=== PATIENT | male | born 1935 | race Caucasian/White ===

== ENCOUNTER 2016-12-26 12:34 | Outpatient (CLI) | payer MEDICARE, BC ==
[2016-12-26 13:07] LABS: BASOPHILS % (AUTO) 0.7 %; EOSINOPHILS # (AUTO) 0.3 10^3/uL (0.0-0.7); EOSINOPHILS % (AUTO) 3.9 %; HCT - HEMATOCRIT 41.6 % (42.0-52.0); HGB - HEMOGLOBIN 13.7 g/dL (14.0-18.0); LYMPHOCYTES # (AUTO) 1.9 10^3/uL (1.5-3.5); LYMPHOCYTES % (AUTO) 25.8 %; MEAN CORPUSCULAR HEMOGLOBIN 28.5 pg (27.0-31.0); MEAN CORPUSCULAR HGB CONC 32.8 g/dL (32.0-36.0); MEAN PLATELET VOLUME 8.3 fL (7.4-11.4); MONOCYTES # (AUTO) 0.7 10^3/uL (0.0-1.0); MONOCYTES % (AUTO) 9.2 %; NEUTROPHILS # (AUTO) 4.4 10^3/uL (1.5-6.6); NEUTROPHILS % (AUTO) 60.4 %; RED BLOOD COUNT 4.79 10^6/uL (4.70-6.10); RED CELL DISTRIBUTION WIDTH 13.1 % (12.0-15.0); UNCORRECTED WHITE BLOOD COUNT 7.3 x10^3/uL; WHITE BLOOD COUNT 7.3 x10^3/uL (4.8-10.8)
[2016-12-26 13:20] LABS: ALBUMIN/GLOBULIN RATIO 1.2 (1.0-2.2); BILIRUBIN,TOTAL 0.6 mg/dL (0.2-1.0); CALCIUM 9.5 mg/dL (8.5-10.3); CREATININE 0.9 mg/dL (0.6-1.2); POTASSIUM 4.4 mmol/L (3.5-5.0); TOTAL PROTEIN 7.1 g/dL (6.7-8.2)
--- NOTE | 2016-12-26 20:20 | XRAY Report ---
EXAM: CHEST RADIOGRAPHY EXAM DATE: 12/26/2016 01:50 PM. CLINICAL HISTORY: PLEURITIC CHEST PX/CAD/ARM PX LEFT. COMPARISON: 05/26/2013. TECHNIQUE: 2 views. FINDINGS: Lungs/Pleura: No focal opacities evident. No pleural effusion. No pneumothorax. Normal volumes. Mediastinum: Heart and mediastinal contours are unremarkable. Postsurgical changes typical of CABG. Other: Degenerative changes in the spine. IMPRESSION: No active disease seen in the chest. [facility] Referring Provider Line: [phone] SITE ID: [id number]
--- NOTE | 2016-12-27 08:43 | XRAY Report ---
EXAM: LEFT SHOULDER RADIOGRAPHY EXAM DATE: 12/26/2016 01:50 PM. CLINICAL HISTORY: ARM PX LEFT. COMPARISON: None. TECHNIQUE: 3 views. FINDINGS: Bones: No acute fracture or focus of destruction. Joints: Degenerative changes at the glenohumeral and acromioclavicular joints (mild). Soft tissues: The visualized hemithorax is unremarkable. No soft tissue swelling. IMPRESSION: Mild degenerative changes. No acute process. [facility] Referring Provider Line: [phone] SITE ID: [id number]
== END 2016-12-26 12:35 | disposition home or self-care (01) ==
LOC: DI 12:34
PROVIDERS: ATTEND Internal Medicine
DX: M19.012 Primary osteoarthritis, left shoulder (principal); R07.81 Pleurodynia; M79.602 Pain in left arm; I25.10 Atherosclerotic heart disease of native coronary artery without angina pectoris
CPT/HCPCS: 36415; 71020; 80053; 85025

== ENCOUNTER 2017-01-01 19:38 | Outpatient (CLI) | payer MEDICARE, BC ==
--- NOTE | 2017-01-04 08:30 | Ultrasound Report ---
EXAM: LEFT UPPER EXTREMITY ULTRASOUND - LIMITED EXAM DATE: 01/01/2017 08:59 PM. CLINICAL HISTORY: SOFT TISSUE MASS. COMPARISON: None. TECHNIQUE: Real-time scanning was performed with static images obtained. FINDINGS: Sonographic evaluation over the area of concern near the left scapula shows the presence of an intramuscular echogenic lesion measuring approximately 0.5 x 0.5 x 1.8 cm. No obvious internal va scularity. IMPRESSION: Small intramuscular echogenic structure in the area of palpable concern. Nonspecific sono graphic appearance. Considerations might include hematoma or intramuscular lipoma. If further imaging characterization is desired, consider CT or MRI. [facility] Referring Provider Line: [phone] SITE ID: [id number]
== END 2017-01-01 19:39 | disposition home or self-care (01) ==
LOC: DI 19:38
PROVIDERS: ATTEND Physician Assistant Medical
DX: M62.89 Other specified disorders of muscle (principal)
CPT/HCPCS: 76882

== ENCOUNTER 2017-01-12 08:37 | Outpatient (CLI) | payer MEDICARE, BC ==
[2017-01-12] MEDS ORDERED: GADOBUTROL 10 MMOL/10 ML VIAL ONE (09:23)
[2017-01-12] MEDS ORDERED: GADOBUTROL 10 MMOL/10 ML VIAL IVP ONE (10:00)
--- NOTE | 2017-01-12 14:28 | MRI Report ---
EXAM: MR CHEST WITHOUT AND WITH CONTRAST EXAM DATE: 01/12/2017 10:11 AM CLINICAL HISTORY: Left arm and chest pain with soft tissue mass. COMPARISON: Ultrasound 01/02/2016. TECHNIQUE: Multiplanar T1 and STIR sequences obtained to the chest and chest wall on an MR scanner. I maging obtained before and after administration of 10 cc intravenous gadavist gadolinium contrast. FINDINGS: There are a few normal fatty replaced bilateral axillary lymph nodes. No MR evidence of soft tissue m ass or abnormal enhancement. The small probable lipoma on ultrasound may be difficult to distinguish from adjacent subcutaneous fat by MRI. Bony structures of the chest demonstrate normal morphology and signal. No fracture, marrow edema or s uspicious bony lesion. Previous median sternotomy. Lungs well expanded and clear within limits of MRI. Heart size normal. Visualized upper abdominal org ans unremarkable. IMPRESSION: 1. No MR evidence of mass in the left axilla. May be difficult to distinguish subcutaneous fat from s mall lipoma. 2. No evidence of mass, lymphadenopathy or inflammatory process in the chest or upper abdomen. [facility] Referring Provider Line: [phone] SITE ID: [id number]
== END 2017-01-12 08:38 | disposition home or self-care (01) ==
LOC: DI 08:37
PROVIDERS: ATTEND Family Medicine
DX: M79.9 Soft tissue disorder, unspecified (principal)
CPT/HCPCS: 71552; A9585

== ENCOUNTER 2017-07-21 08:43 | Outpatient (CLI) | payer MEDICARE, BC ==
[2017-07-21] MEDS ORDERED: BARIUM SULFATE 176 GM BOTTLE PO ONE (09:45)
[2017-07-21] MEDS ORDERED: BARIUM SULFATE 135 ML BOTTLE PO ONE (09:45)
--- NOTE | 2017-07-21 10:19 | XRAY Report ---
ESOPHAGRAM: 07/21/2017 HISTORY: Heartburn, regurgitation. FINDINGS: The patient was given thin and thick barium to swallow by mouth as well as a barium tablet. There is no evidence of aspiration or penetration. Minor presbyesophagus is present with lack of secondary stripping waves. Occasional tertiary contraction is present. There is no evidence of stricture and a 13 mm barium tablet passes easily into the stomach. There is free reflux to the level of the clavicles with lack of clearing. No hiatal hernia is seen. Incidental note made of prior CABG. Fluoroscopy time: 4 minutes 16 seconds Number of images: 34 IMPRESSION: LARGE AMOUNT OF ESOPHAGEAL REFLUX TO THE LEVEL OF THE CLAVICLES WITH ABSENT CLEARING. NO HIATAL HERNIA OR ASPIRATION. NO STRICTURE SEEN. TD: 07/21/2017 10:17 LEONARD
== END 2017-07-21 08:44 | disposition home or self-care (01) ==
LOC: DI 08:43
PROVIDERS: ATTEND Family Medicine
DX: K21.9 Gastro-esophageal reflux disease without esophagitis (principal)
CPT/HCPCS: 74220; A9270

== ENCOUNTER 2017-09-09 12:11 | Day surgery (SDC) | payer MEDICARE, BC ==
[2017-09-09] MEDS ORDERED: LACTATED RINGERS 1,000 ML IV ONE (13:03)
[2017-09-09] MEDS ORDERED: LIDO GARGLE 30 ML BOTTLE ONE (13:40)
[2017-09-09] MEDS ORDERED: LIDO GARGLE 30 ML BOTTLE TOP ONE (13:41)
[2017-09-09] MEDS ORDERED: LIDOCAINE-MPF 2% 5 ML VIAL IM ONE (14:00)
[2017-09-09] MEDS ORDERED: PROPOFOL 200 MG/20 ML VIAL IVP ONE (14:00)
[2017-09-09 14:35] VITALS: BP 113/69
== END 2017-09-09 12:12 | disposition home or self-care (01) ==
LOC: SDS 12:11
PROVIDERS: ATTEND Internal Medicine Gastroenterology
PROC: 0DB48ZX Excision of Esophagogastric Junction, Via Natural or Artificial Opening Endoscopic, Diagnostic (ICD-10-PCS; principal; 2017-09-09 13:30)
DX: K22.70 Barrett's esophagus without dysplasia (principal); K21.9 Gastro-esophageal reflux disease without esophagitis; Z79.82 Long term (current) use of aspirin; Z95.1 Presence of aortocoronary bypass graft
CPT/HCPCS: 43239; A9270; J7120

== ENCOUNTER 2020-12-20 08:54 | Outpatient (CLI) | payer MEDICARE, BC ==
--- NOTE | 2020-12-20 11:41 | XRAY Report ---
PROCEDURE: Lumbar Spine 2 View INDICATIONS: LUMBAR DISC DISORDER TECHNIQUE: 4 views of the lumbar spine were acquired. COMPARISON: None. FINDINGS: No acute fracture seen. There is moderate levocurvature centered at the L3-L4 level. Scattered multil evel endplate spurring and diffuse facet arthropathy. Diffuse moderate narrowing of lumbar disc space s. This is also moderate narrowing of the thoracic disc spaces. Atheromatous calcifications projectin g in the aorta. IMPRESSION: Diffuse moderate spondylosis and facet arthropathy Levoscoliosis. Reviewed by: Drew Simmons MD on 12/20/2020 11:40 AM PDT Approved by: Drew Simmons MD on 12/20/2020 11:40 AM PDT Station ID: [id number]
--- NOTE | 2020-12-20 13:41 | XRAY Report ---
PROCEDURE: Hip w/Pelvis 2-3V RT INDICATIONS: RIGHT HIP PAIN TECHNIQUE: AP pelvis with lateral view(s) of the right hip(s). COMPARISON: None. FINDINGS: Bones: No fractures or dislocations. Pelvic ring appears intact. No suspicious bony lesions. Total left hip arthroplasty. Rarefaction in the supra-acetabular region of the left iliac bone. Moderate r ight hip degenerative arthritis. Soft tissues: The visualized bowel gas pattern is normal. No suspicious soft tissue calcifications. IMPRESSION: Moderate right hip degenerative arthritis. No evidence acute bony abnormality of the pel vis and right hip. If clinical suspicion and/or symptoms persist, further assessment with repeat plain films or advanced imaging (e.g., CT, MRI, or bone scan) may be helpful for further assessment. Reviewed by: Werner Garcia MD on 12/20/2020 1:39 PM PDT Approved by: Werner Garcia MD on 12/20/2020 1:39 PM PDT Station ID: [id number]
== END 2020-12-20 08:55 | disposition home or self-care (01) ==
LOC: DI.N 08:54
PROVIDERS: ATTEND Family Medicine
DX: M47.816 Spondylosis without myelopathy or radiculopathy, lumbar region (principal); M16.11 Unilateral primary osteoarthritis, right hip

== ENCOUNTER 2021-06-19 07:39 | Outpatient (CLI) | payer MEDICARE, BC ==
--- NOTE | 2021-06-19 16:00 | Ultrasound Report ---
PROCEDURE: Ankle Brachial Index INDICATIONS: RIGHT CALF PAIN TECHNIQUE: Ankle-brachial indices were obtained bilaterally and recorded. COMPARISONS: None. FINDINGS: Right ankle brachial index (ERIKA): 1.08 Left ankle brachial index (ERIKA): There are 0.99 IMPRESSION: Normal bilateral ABIs. Reviewed by: Chucho Mcgee on 06/19/2021 3:58 PM PST Approved by: Chucho Mcgee on 06/19/2021 3:58 PM [facility] Station ID: [id number]
== END 2021-06-19 07:40 | disposition home or self-care (01) ==
LOC: DI 07:39
PROVIDERS: ATTEND Physician Assistant Medical
DX: M79.661 Pain in right lower leg (principal)
CPT/HCPCS: 93922

== ENCOUNTER 2021-08-10 16:20 | Outpatient (CLI) | payer MEDICARE, BC | END 2021-08-10 16:21 | disposition critical access hospital (66) | LOC: EMS 16:20 | DX: R53.1 Weakness (principal); R42 Dizziness and giddiness | CPT/HCPCS: A0425; A0429 ==

== ENCOUNTER 2021-08-10 16:34 | Emergency (ER) | payer MEDICARE, BC ==
[2021-08-10 17:06] LABS: BASOPHILS % (AUTO) 0.3 %; EOSINOPHILS % (AUTO) 0.3 %; HCT - HEMATOCRIT 39.5 % (42.0-52.0); HGB - HEMOGLOBIN 12.8 g/dL (14.0-18.0); LYMPHOCYTES # (AUTO) 0.6 10^3/uL (1.5-3.5); LYMPHOCYTES % (AUTO) 7.2 %; MEAN CORPUSCULAR HEMOGLOBIN 28.6 pg (27.0-31.0); MEAN CORPUSCULAR HGB CONC 32.4 g/dL (32.0-36.0); MEAN CORPUSCULAR VOLUME 88.4 fL (80.0-94.0); MONOCYTES # (AUTO) 1.2 10^3/uL (0.0-1.0); MONOCYTES % (AUTO) 13.2 %; NEUTROPHILS # (AUTO) 6.9 10^3/uL (1.5-6.6); NEUTROPHILS % (AUTO) 78.8 %; PLT - PLATELET COUNT 201 10^3/uL (130-450); RED BLOOD COUNT 4.47 10^6/uL (4.70-6.10); RED CELL DISTRIBUTION WIDTH 13.1 % (12.0-15.0); WHITE BLOOD COUNT 8.7 x10^3/uL (4.8-10.8)
[2021-08-10 17:16] LABS: LACTIC ACID, VENOUS 2.5 mmol/L (0.5-2.2)
[2021-08-10 17:17] LABS: ALBUMIN 3.5 g/dL (3.2-5.5); ALBUMIN/GLOBULIN RATIO 1.1 (1.0-2.2); CALCIUM 8.5 mg/dL (8.5-10.3); CREATININE 1.2 mg/dL (0.6-1.2); TOTAL PROTEIN 6.8 g/dL (6.7-8.2)
--- NOTE | 2021-08-10 17:17 | ED Physician Documentation ---
History of Present Illness - Stated complaint Stated Complaint: GEN WEAKNESS - Chief complaint Chief Complaint: Fever - History obtained from History obtained from: Patient, Family - Additonal information Additional information: 86-year-old gentleman with history of coronary disease status post remote bypass, prostate hypertrophy and GERD got sick yesterday with fever, shaking chills and generalized weakness. The weakness has progressed to a point where he is unable to walk unassisted. Multiple family members have been sick with colds but none were tested for COVID. He has been fully immunized and double boosted against COVID. Review of Systems Ten Systems: 10 systems reviewed and negative Constitutional: reports: Fever, Chills Nose: reports: Rhinorrhea / runny nose Throat: reports: Sore throat Respiratory: reports: Cough. denies: Dyspnea PD PAST MEDICAL HISTORY - Past Medical History Cardiovascular: High cholesterol, Coronary artery disease, Angina, [place], Murmur, Other Respiratory: Sleep apnea Endocrine/Autoimmune: HyPOthyroidism GI: GERD : Benign prostate hypertrophy HEENT: None Psych: None Musculoskeletal: Osteoarthritis Derm: None - Past Surgical History Ortho: Hip replacement Cardiovascular: CABG HEENT: Cataracts, Tonsil/Adenoidectomy - Present Medications Home Medications: Ambulatory Orders Medication Instructions Recorded Confirmed Aspirin EC [Ecotrin] 325 mg PO DAILY 09/08/17 08/10/21 Finasteride 5 mg PO DAILY 09/08/17 08/10/21 Levothyroxine Sodium 100 mcg PO DAILY 09/08/17 08/10/21 Nitroglycerin [Nitrostat] 0.4 mg SL Q5MIN PRN 09/08/17 08/10/21 Rosuvastatin Calcium [Crestor] 0.5 tab PO DAILY 09/08/17 08/10/21 Tamsulosin HCl [Flomax] 0.4 mg PO DAILY 09/08/17 08/10/21 carvediloL [Coreg] 0.5 tab PO BID 09/08/17 08/10/21 traZODone [Desyrel] 50 mg PO HS #30 tablet 08/10/21 - Allergies Allergies/Adverse Reactions: Allergies Allergy/AdvReac Type Severity Reaction Status Date / Time alfuzosin [From Uroxatral] Allergy Unknown Verified 08/10/21 16:43 Penicillins Allergy Anaphylaxis Verified 08/10/21 16:43 - Social History Does the pt smoke?: No Smoking Status: Never smoker PD ED PE NORMAL - Vitals Vital signs reviewed: Yes - General General: Alert and oriented X 3, No acute distress, Well developed/nourished, Other (He is able to sit up unassisted) - HEENT HEENT: PERRL, EOMI - Neck Neck: Supple, no meningeal sign, No bony TTP - Cardiac Cardiac: RRR, No murmur - Respiratory Respiratory: No respiratory distress, Clear bilaterally - Abdomen Abdomen: Normal bowel sounds, Soft, Non tender - Back Back: No CVA TTP, No spinal TTP - Derm Derm: Normal color, Warm and dry - Extremities Extremities: No edema, No calf tenderness / cord - Neuro Neuro: Alert and oriented X 3, Normal speech Results - Vitals Vitals: Vital Signs - 24 hr 08/10/21 08/10/21 08/10/21 16:38 17:10 17:50 Temperature 38.7 C H 38.2 C H Heart Rate 81 88 94 Respiratory 20 20 20 Rate Blood Pressure 120/89 H 148/77 H O2 Saturation 93 95 96 08/10/21 08/10/21 08/10/21 18:05 18:44 19:23 Temperature 38.1 C H Heart Rate 85 83 66 Respiratory 20 18 18 Rate Blood Pressure 133/77 H 130/80 143/69 H O2 Saturation 95 98 97 Oxygen O2 Source Room air - Labs Labs: Laboratory Tests 08/10/21 08/10/21 08/10/21 16:55 16:55 16:55 WBC 8.7 RBC 4.47 L Hgb 12.8 L Hct 39.5 L MCV 88.4 MCH 28.6 MCHC 32.4 RDW 13.1 Plt Count 201 MPV 10.0 Neut # (Auto) 6.9 H Lymph # (Auto) 0.6 L [place] # (Auto) 1.2 H Eos # (Auto) 0.0 Baso # (Auto) 0.0 Absolute Nucleated RBC 0.00 Nucleated RBC % 0.0 Sodium 134 L Potassium 4.0 Chloride 99 L Carbon Dioxide 23 Anion Gap 12.0 BUN 16 Creatinine 1.2 Estimated GFR (MDRD) 58 L Glucose 137 H Lactic Acid 2.5 H Calcium 8.5 Total Bilirubin 1.0 AST 21 ALT 13 Alkaline Phosphatase 54 Total Protein 6.8 Albumin 3.5 Globulin 3.3 Albumin/Globulin Ratio 1.1 Urine Color Urine Clarity Urine pH Ur Specific [place] Urine Protein Urine Glucose (UA) Urine Ketones Urine Occult Blood Urine Nitrite Urine Bilirubin Urine Urobilinogen Ur Leukocyte Esterase Urine RBC Urine WBC Ur Squamous Epith Cells Urine Bacteria Urine Casts Urine Mucus Urine Culture Comments Nasal Adenovirus (PCR) Nasal B. parapertussis DNA (PCR) Nasal Coronavir 229E PCR Nasal Coronavir HKU1 PCR Nasal Coronavir NL63 PCR Nasal Coronavir OC43 PCR Nasal Enterovir/Rhinovir PCR Nasal Influenza B PCR Nasal Influenza A PCR Nasal Parainfluen 1 PCR Nasal Parainfluen 2 PCR Nasal Parainfluen 3 PCR Nasal Parainfluen 4 PCR Nasal RSV (PCR) Nasal B.pertussis DNA PCR Nasal C.pneumoniae (PCR) Jose Human Metapneumo PCR Nasal M.pneumoniae (PCR) Nasal SARS-CoV-2 (PCR) Group A Strep Rapid 08/10/21 08/10/21 08/10/21 17:06 17:06 18:15 WBC RBC Hgb Hct MCV MCH MCHC RDW Plt Count MPV Neut # (Auto) Lymph # (Auto) [place] # (Auto) Eos # (Auto) Baso # (Auto) Absolute Nucleated RBC Nucleated RBC % Sodium Potassium Chloride Carbon Dioxide Anion Gap BUN Creatinine Estimated GFR (MDRD) Glucose Lactic Acid Calcium Total Bilirubin AST ALT Alkaline Phosphatase Total Protein Albumin Globulin Albumin/Globulin Ratio Urine Color YELLOW Urine Clarity HAZY Urine pH 6.0 Ur Specific [place] 1.025 Urine Protein TRACE Urine Glucose (UA) NEGATIVE Urine Ketones NEGATIVE Urine Occult Blood NEGATIVE Urine Nitrite NEGATIVE Urine Bilirubin NEGATIVE Urine Urobilinogen 0.2 (NORMAL) Ur Leukocyte Esterase NEGATIVE Urine RBC 0-5 Urine WBC 0-3 Ur Squamous Epith Cells RARE Squamous Urine Bacteria None Seen Urine Casts 3-5 Hyaline Casts Urine Mucus Few Strands Urine Culture Comments NOT INDICATED Nasal Adenovirus (PCR) NOT DETECTED Nasal B. parapertussis DNA (PCR) NOT DETECTED Nasal Coronavir 229E PCR NOT DETECTED Nasal Coronavir HKU1 PCR NOT DETECTED Nasal Coronavir NL63 PCR NOT DETECTED Nasal Coronavir OC43 PCR NOT DETECTED Nasal Enterovir/Rhinovir PCR NOT DETECTED Nasal Influenza B PCR NOT DETECTED Nasal Influenza A PCR NOT DETECTED Nasal Parainfluen 1 PCR NOT DETECTED Nasal Parainfluen 2 PCR NOT DETECTED Nasal Parainfluen 3 PCR NOT DETECTED Nasal Parainfluen 4 PCR NOT DETECTED Nasal RSV (PCR) NOT DETECTED Nasal B.pertussis DNA PCR NOT DETECTED Nasal C.pneumoniae (PCR) NOT DETECTED Jose Human Metapneumo PCR NOT DETECTED Nasal M.pneumoniae (PCR) NOT DETECTED Nasal SARS-CoV-2 (PCR) DETECTED A Group A Strep Rapid Negative 08/10/21 20:14 WBC RBC Hgb Hct MCV MCH MCHC RDW Plt Count MPV Neut # (Auto) Lymph # (Auto) [place] # (Auto) Eos # (Auto) Baso # (Auto) Absolute Nucleated RBC Nucleated RBC % Sodium Potassium Chloride Carbon Dioxide Anion Gap BUN Creatinine Estimated GFR (MDRD) Glucose Lactic Acid 0.7 Calcium Total Bilirubin AST ALT Alkaline Phosphatase Total Protein Albumin Globulin Albumin/Globulin Ratio Urine Color Urine Clarity Urine pH Ur Specific [place] Urine Protein Urine Glucose (UA) Urine Ketones Urine Occult Blood Urine Nitrite Urine Bilirubin Urine Urobilinogen Ur Leukocyte Esterase Urine RBC Urine WBC Ur Squamous Epith Cells Urine Bacteria Urine Casts Urine Mucus Urine Culture Comments Nasal Adenovirus (PCR) Nasal B. parapertussis DNA (PCR) Nasal Coronavir 229E PCR Nasal Coronavir HKU1 PCR Nasal Coronavir NL63 PCR Nasal Coronavir OC43 PCR Nasal Enterovir/Rhinovir PCR Nasal Influenza B PCR Nasal Influenza A PCR Nasal Parainfluen 1 PCR Nasal Parainfluen 2 PCR Nasal Parainfluen 3 PCR Nasal Parainfluen 4 PCR Nasal RSV (PCR) Nasal B.pertussis DNA PCR Nasal C.pneumoniae (PCR) Jose Human Metapneumo PCR Nasal M.pneumoniae (PCR) Nasal SARS-CoV-2 (PCR) Group A Strep Rapid PD MEDICAL DECISION MAKING - ED course ED course: 86-year-old gentleman presents with acute generalized weakness associated with fever. Despite being fully immunized and double boosted against COVID he is positive for this entity. After the administration of IV fluids and antipyretics he was feeling much better and requested discharge. He was able to ambulate unassisted. He was administered a prepack of molnupiravir noting that Paxlovid would be contraindicated with his tamsulosin. He also requested something for sleep and administered trazodone. Departure - Departure Disposition: 01 Home, Self Care Clinical Impression: Weakness, COVID Condition: Good Record reviewed to determine appropriate education?: Yes Instructions: ED Viral Syndrome Prescriptions: traZODone [Desyrel] 50 mg PO HS #30 tablet Comments: He should take 600 mg of ibuprofen and 1000 mg of Tylenol every 6 hours. Drink plenty of fluids. Return if worsening. Quarantine for 9 days from today.
[2021-08-10 17:20] LABS: RAPID STREP SCREEN Negative (Negative)
[2021-08-10] MEDS: SODIUM CHLORIDE 0.9% 1,000 ML IV STA (17:26)
[2021-08-10] MEDS: ACETAMINOPHEN 500 MG TABLET PO STA (17:26)
[2021-08-10 18:05] LABS: B. PARAPERTUSSIS- RESP PCR PAN NOT DETECTED; B. PERTUSSIS- RESP PCR PANEL NOT DETECTED; C. PNEUMONIAE- RESP PCR PANEL NOT DETECTED; CORONAVIRUS 229E-RESP PCR NOT DETECTED; CORONAVIRUS HKU1-RESP PCR NOT DETECTED; CORONAVIRUS NL63-RESP PCR NOT DETECTED; CORONAVIRUS OC43-RESP PCR NOT DETECTED; HUMAN METAPNEUMOVIRUS NOT DETECTED; INFLUENZA A- RESP PCR PANEL NOT DETECTED; INFLUENZA B - RESP PCR PANEL NOT DETECTED; M. PNEUMONIAE- RESP PCR PANEL NOT DETECTED; PARAINFLUENZA VIRUS 1 NOT DETECTED; PARAINFLUENZA VIRUS 2 NOT DETECTED; PARAINFLUENZA VIRUS 3 NOT DETECTED; PARAINFLUENZA VIRUS 4 NOT DETECTED; RHINOVIRUS/ENTEROVIRUS NOT DETECTED; RSV- RESP PCR PANEL NOT DETECTED; SARS-CoV-2 -RESP PCR PANEL DETECTED
[2021-08-10 18:29] LABS: BILIRUBIN,URINE NEGATIVE (NEGATIVE); GLUCOSE, URINE (UA) NEGATIVE (NEGATIVE); KETONES,URINE (UA) NEGATIVE (NEGATIVE); LEUKOCYTE ESTERASE, URINE NEGATIVE (NEGATIVE); NITRITE,URINE NEGATIVE (NEGATIVE); OCCULT BLOOD,URINE NEGATIVE (NEGATIVE); PROTEIN,URINE TRACE mg/dL (NEGATIVE); UROBILINOGEN,URINE 0.2 (NORMAL) E.U./dL (NORMAL)
[2021-08-10 18:31] LABS: CLARITY,URINE HAZY (CLEAR)
[2021-08-10 18:47] LABS: BACTERIA,URINE None Seen /HPF (None Seen); CASTS, URINE 3-5 Hyaline Casts /LPF; MUCUS,URINE Few Strands; RBC,URINE 0-5 /HPF (0-5); SQUAMOUS EPITHELIAL CELL,UR RARE Squamous (<= Few); WBC,URINE 0-3 /HPF (0-3)
[2021-08-10] MEDS: IBUPROFEN 800 MG TABLET PO STA (18:52)
[2021-08-10] MEDS: traZODone 50 MG TABLET PO STA (20:19)
[2021-08-10] MEDS: MOLNUPIRAVIR PREPACK PO STA (20:19)
[2021-08-10 22:13] VITALS: BP 126/69
== END 2021-08-10 20:50 | disposition home or self-care (01) ==
LOC: EDUNIT# → ED 16:34
DX: U07.1 COVID-19 (principal)
CPT/HCPCS: 36415; 80053; 81001; 83605; 85025; 87040; 87070; 87430; 87633; 96360; 99283; 99284; A9270; J3490; 87086

== ENCOUNTER 2022-07-03 11:21 | Outpatient (CLI) | payer MEDICARE, BC ==
--- NOTE | 2022-07-03 14:28 | XRAY Report ---
PROCEDURE: Knee 3 View LT INDICATIONS: KNEE PAIN, LEFT TECHNIQUE: 3 views of the left knee(s) were acquired. COMPARISON: None. FINDINGS: Bones: No fractures or dislocations. No suspicious bony lesions. There is moderate tricompartment al arthritic change. Small periarticular osteophytes are present without erosions. Soft tissues: Mild joint effusion. No suspicious soft tissue calcifications. IMPRESSION: Tricompartmental arthritic change. Reviewed by: Lindsay Nicholas MD on 07/03/2022 2:27 PM PDT Approved by: Lindsay Nicholas MD on 07/03/2022 2:27 PM PDT Station ID: [id number]
== END 2022-07-03 11:22 | disposition home or self-care (01) ==
LOC: DI 11:21
PROVIDERS: ATTEND Physician Assistant Medical
DX: M17.12 Unilateral primary osteoarthritis, left knee (principal)

== ENCOUNTER 2022-07-30 13:21 | Outpatient (CLI) | payer MEDICARE, BC ==
--- NOTE | 2022-07-30 17:06 | XRAY Report ---
PROCEDURE: Knee 2 View LT INDICATIONS: LEFT KNEE PAIN TECHNIQUE: 2 views of the left knee(s) were acquired. COMPARISON: 07/03/2022 FINDINGS: Bones: No fractures or dislocations. Moderate lateral femoral tibial compartment osteoarthritis and mild to moderate medial femoral-tibial compartment osteoarthritis in left knee is seen. No suspicious bony lesions. Soft tissues: No suspicious soft tissue calcifications or masses. IMPRESSION: Moderate medial and lateral femoral tibial compartment osteoarthritis as above. Reviewed by: Emeterio Chery MD on 07/30/2022 5:05 PM PDT Approved by: Emeterio Chery MD on 07/30/2022 5:05 PM PDT Station ID: [id number]
== END 2022-07-30 13:25 | disposition home or self-care (01) ==
LOC: DI.WOS 13:21
PROVIDERS: ATTEND Physician Assistant Surgical
DX: M17.12 Unilateral primary osteoarthritis, left knee (principal)

== ENCOUNTER 2023-04-08 13:02 | Emergency (ER) | payer MEDICARE, BC ==
--- NOTE | 2023-04-08 14:43 | ED Physician Documentation ---
History of Present Illness - Stated complaint Stated Complaint: RT HAND PX - Chief complaint Chief Complaint: Ext Problem - History obtained from History obtained from: Patient, Family - History of Present Illness Timing: Today Pain level max: 6 Pain level now: 0 - Additonal information Additional information: Patient is an 87-year-old male who presents to the emergency department complaining of right hand and right arm pain that started today. He states that he went to the walk-in clinic and was told that his hand was cold and dark in color. He states that they told him they could not feel any of his pulses and so told him to come to the emergency department. He has a history of three- vessel bypass. Does not have any cardiac stents. He is not on blood thinners. 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 No fevers. No chills. No focal weakness. He states that the pain has now resolved but his hand feels numb. Review of Systems Constitutional: denies: Fever, Chills GI: denies: Vomiting, Diarrhea Skin: denies: Rash Musculoskeletal: denies: Neck pain, Back pain Neurologic: denies: Headache PD PAST MEDICAL HISTORY - Past Medical History Past Medical History: Yes Cardiovascular: High cholesterol, Coronary artery disease, Angina, [place], Murmur, Other Respiratory: Sleep apnea Neuro: None Endocrine/Autoimmune: HyPOthyroidism GI: GERD : Benign prostate hypertrophy HEENT: None Psych: None Musculoskeletal: Osteoarthritis Derm: None - Past Surgical History Past Surgical History: Yes Ortho: Hip replacement Cardiovascular: CABG HEENT: Cataracts, Tonsil/Adenoidectomy - Present Medications Home Medications: Ambulatory Orders Medication Instructions Recorded Confirmed Aspirin EC [Ecotrin] 325 mg PO DAILY 09/08/17 04/08/23 Finasteride 5 mg PO DAILY 09/08/17 04/08/23 Levothyroxine Sodium 100 mcg PO DAILY 09/08/17 04/08/23 Nitroglycerin [Nitrostat] 0.4 mg SL Q5MIN PRN 09/08/17 04/08/23 Tamsulosin HCl [Flomax] 0.4 mg PO DAILY 09/08/17 04/08/23 carvediloL [Coreg] 3.125 mg PO DAILY 09/08/17 04/08/23 Losartan Potassium 25 mg PO DAILY 04/08/23 04/08/23 Magnesium Oxide [Mag-Oxide] 200 mg PO DAILY 04/08/23 04/08/23 Omeprazole Magnesium 20 mg PO DAILY 04/08/23 04/08/23 Rosuvastatin Calcium [Crestor] 10 mg PO DAILY 04/08/23 04/08/23 carvediloL [Coreg] 0.5 tab PO QPM 04/08/23 04/08/23 - Allergies Allergies/Adverse Reactions: Allergies Allergy/AdvReac Type Severity Reaction Status Date / Time alfuzosin [From Uroxatral] Allergy Unknown Verified 04/08/23 13:06 Penicillins Allergy Anaphylaxis Verified 04/08/23 13:06 - Social History Does the pt smoke?: No Smoking Status: Never smoker Does the pt drink ETOH?: No Does the pt have substance abuse?: No - Immunizations Immunizations are current?: Yes PD ED PE NORMAL - Vitals Vital signs reviewed: Yes - General General: Alert and oriented X 3, No acute distress - HEENT HEENT: Moist mucous membranes - Neck Neck: Supple, no meningeal sign - Cardiac Cardiac: RRR - Respiratory Respiratory: No respiratory distress, Clear bilaterally - Derm Derm: Warm and dry - Extremities Extremities: Other (R hand - Diminished cap refill in the distal fingertips. Paler nailbeds when compared to the left hand. There is a diminutive right radial pulse. ) - Neuro Neuro: Alert and oriented X 3, account services analyst 2-12 intact, No motor deficit, No sensory deficit, Normal speech - Psych Psych: Normal mood, Normal affect Results - Vitals Vitals: Vital Signs - 24 hr 04/08/23 04/08/23 04/08/23 13:06 15:32 17:00 Temperature 36.8 C Heart Rate 65 64 67 Respiratory 16 18 19 Rate Blood Pressure 158/67 H 126/71 138/70 H O2 Saturation 99 97 99 04/08/23 04/08/23 04/08/23 18:30 19:28 20:49 Temperature 36.2 C L 36.6 C Heart Rate 72 62 57 L Respiratory 18 18 16 Rate Blood Pressure 131/72 H 166/91 H 132/63 H O2 Saturation 96 99 96 04/08/23 22:07 Temperature Heart Rate 63 Respiratory 17 Rate Blood Pressure 167/69 H O2 Saturation 99 Oxygen O2 Source Room air - Labs Labs: Laboratory Tests 04/08/23 04/08/23 04/08/23 09:09 14:47 14:47 WBC 5.3 RBC 4.58 L Hgb 12.6 L Hct 40.7 L MCV 88.9 MCH 27.5 MCHC 31.0 L RDW 13.7 Plt Count 215 MPV 10.2 Neut # (Auto) 3.6 Lymph # (Auto) 1.2 L [place] # (Auto) 0.4 Eos # (Auto) 0.1 Baso # (Auto) 0.0 Absolute Nucleated RBC 0.00 Nucleated RBC % 0.0 PT 12.1 INR 1.1 APTT > 240.0 H* 27.0 Sodium Potassium Chloride Carbon Dioxide Anion Gap BUN Creatinine Estimated GFR (MDRD) Glucose Calcium Total Bilirubin AST ALT Alkaline Phosphatase Total Protein Albumin Globulin Albumin/Globulin Ratio 04/08/23 14:47 WBC RBC Hgb Hct MCV MCH MCHC RDW Plt Count MPV Neut # (Auto) Lymph # (Auto) [place] # (Auto) Eos # (Auto) Baso # (Auto) Absolute Nucleated RBC Nucleated RBC % PT INR APTT Sodium 139 Potassium 4.5 Chloride 105 Carbon Dioxide 30 Anion Gap 4.0 L BUN 14 Creatinine 1.0 Estimated GFR (MDRD) 71 L Glucose 147 H Calcium 9.0 Total Bilirubin 0.5 AST 14 ALT 9 L Alkaline Phosphatase 62 Total Protein 6.5 Albumin 3.7 Globulin 2.8 Albumin/Globulin Ratio 1.3 - Rads (name of study) R arm arterial US Relevant Findings:: Final report received, See rad report PD Medical Decision Making - ED course Complexity details: reviewed results, re-evaluated patient, considered d ifferential, d/w patient, d/w family, d/w technical support consultant ED course: 87-year-old male presents to the emergency department with diminished pulses in the right forearm, radial and ulnar arteries. Diminished cap refill in the right hand, cool hand, pale and diminished function. He was immediately started on a heparin drip. A arterial ultrasound was ordered. Has monophasic flow throughout the radial and ulnar artery. Appears to have a limiting stenosis somewhere near the proximal radial artery with an increased velocity at this point. On repeat evaluation after the heparin drip he states that his hand feels better, it does appear more pink and his cap refill is improved. He states the numbness is gone. I discussed the case with Dr. Palomo, vascular surgery at [facility] Who recommends transfer to the [place] emergency department for in person evaluation. The patient will be maintained on a heparin drip. I spoke with Dr. Michel, emergency department physician who graciously accepts in transfer. COBRA forms completed. This document was made in part using voice recognition software. While efforts are made to proofread this document, sound alike and grammatical errors may occur. PROCEDURE: Duplex Upr Ext Arterial RT INDICATIONS: R arm pain, decreased pulse TECHNIQUE: Color and pulse Doppler interrogation was performed of right upper extremity arterial systems, with image documentation. COMPARISON: None. FINDINGS: Subclavian artery (proximal): 79 cm/sec, with triphasic flow. Axillary artery: 55 cm/sec, with triphasic flow. Brachial artery (proximal): 31 cm/sec, with triphasic flow. Brachial artery (mid): 17 cm/sec, with monophasic flow. Radial artery (proximal): 84 cm/sec, with monophasic flow. Radial artery (mid): 17 cm/sec, with monophasic flow. Radial artery (distal): 8 cm/sec, with monophasic flow. Ulnar artery (proximal): 19 cm/sec, with monophasic flow. Ulnar artery (mid): 23 cm/sec. with monophasic flow. Ulnar artery (distal): 17 cm/sec, with monophasic flow. 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 Departure - Departure Disposition: 02 Transfer Acute Care Hosp Clinical Impression: Arterial stenosis Condition: Stable Forms: PCP List Discharge Date/Time: 04/08/23 22:16
[2023-04-08 14:54] LABS: BASOPHILS % (AUTO) 0.4 %; EOSINOPHILS # (AUTO) 0.1 10^3/uL (0.0-0.7); EOSINOPHILS % (AUTO) 1.3 %; HCT - HEMATOCRIT 40.7 % (42.0-52.0); HGB - HEMOGLOBIN 12.6 g/dL (14.0-18.0); LYMPHOCYTES # (AUTO) 1.2 10^3/uL (1.5-3.5); MEAN CORPUSCULAR HEMOGLOBIN 27.5 pg (27.0-31.0); MEAN CORPUSCULAR VOLUME 88.9 fL (80.0-94.0); MEAN PLATELET VOLUME 10.2 fL (7.4-11.4); MONOCYTES # (AUTO) 0.4 10^3/uL (0.0-1.0); MONOCYTES % (AUTO) 7.4 %; NEUTROPHILS # (AUTO) 3.6 10^3/uL (1.5-6.6); NEUTROPHILS % (AUTO) 67.7 %; PLT - PLATELET COUNT 215 10^3/uL (130-450); RED BLOOD COUNT 4.58 10^6/uL (4.70-6.10); RED CELL DISTRIBUTION WIDTH 13.7 % (12.0-15.0); WHITE BLOOD COUNT 5.3 x10^3/uL (4.8-10.8)
[2023-04-08 15:14] LABS: INR 1.1 (0.8-1.2); PT - PROTHROMBIN TIME 12.1 secs (9.9-12.6)
[2023-04-08] MEDS: HEPARIN 25000UNITS/500ML (D5W) 25,000 UNIT/500 ML BAG IV SCH (15:28)
[2023-04-08 15:36] LABS: ALBUMIN 3.7 g/dL (3.2-5.5); ALBUMIN/GLOBULIN RATIO 1.3 (1.0-2.2); BILIRUBIN,TOTAL 0.5 mg/dL (0.2-1.0); POTASSIUM 4.5 mmol/L (3.5-4.5); TOTAL PROTEIN 6.5 g/dL (6.4-8.9)
--- NOTE | 2023-04-08 17:30 | Ultrasound Report ---
PROCEDURE: Duplex Upr Ext Arterial RT INDICATIONS: R arm pain, decreased pulse TECHNIQUE: Color and pulse Doppler interrogation was performed of right upper extremity arterial systems, with i mage documentation. COMPARISON: None. FINDINGS: Subclavian artery (proximal): 79 cm/sec, with triphasic flow. Axillary artery: 55 cm/sec, with triphasic flow. Brachial artery (proximal): 31 cm/sec, with triphasic flow. Brachial artery (mid): 17 cm/sec, with monophasic flow. Radial artery (proximal): 84 cm/sec, with monophasic flow. Radial artery (mid): 17 cm/sec, with monophasic flow. Radial artery (distal): 8 cm/sec, with monophasic flow. Ulnar artery (proximal): 19 cm/sec, with monophasic flow. Ulnar artery (mid): 23 cm/sec. with monophasic flow. Ulnar artery (distal): 17 cm/sec, with monophasic flow. 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 Reviewed by: Chucho Mcgee MD on 04/08/2023 5:28 PM PST Approved by: Chucho Mcgee MD on 04/08/2023 5:28 PM PST Station ID: [id number]
[2023-04-08 22:09] VITALS: BP 167/69; O2SAT 99
== END 2023-04-08 22:16 | disposition short-term general hospital (02) ==
LOC: ED 13:02
DX: I77.1 Stricture of artery (principal)
CPT/HCPCS: 36415; 80053; 85025; 85610; 85730; 96365; 96366; 96376; 99284

== ENCOUNTER 2023-04-17 09:38 | Outpatient (CLI) | payer MEDICARE, BC ==
[2023-04-17 18:52] LABS: BASOPHILS % (AUTO) 0.7 %; EOSINOPHILS # (AUTO) 0.2 10^3/uL (0.0-0.7); EOSINOPHILS % (AUTO) 3.4 %; HCT - HEMATOCRIT 42.5 % (42.0-52.0); HGB - HEMOGLOBIN 12.7 g/dL (14.0-18.0); LYMPHOCYTES # (AUTO) 1.6 10^3/uL (1.5-3.5); LYMPHOCYTES % (AUTO) 28.7 %; MEAN CORPUSCULAR HGB CONC 29.9 g/dL (32.0-36.0); MEAN CORPUSCULAR VOLUME 90.2 fL (80.0-94.0); MONOCYTES # (AUTO) 0.7 10^3/uL (0.0-1.0); MONOCYTES % (AUTO) 11.7 %; NEUTROPHILS # (AUTO) 3.1 10^3/uL (1.5-6.6); NEUTROPHILS % (AUTO) 55.3 %; PLT - PLATELET COUNT 245 10^3/uL (130-450); RED BLOOD COUNT 4.71 10^6/uL (4.70-6.10); RED CELL DISTRIBUTION WIDTH 14.1 % (12.0-15.0); WHITE BLOOD COUNT 5.5 x10^3/uL (4.8-10.8)
[2023-04-17 19:09] LABS: ALBUMIN 3.7 g/dL (3.2-5.5); ALBUMIN/GLOBULIN RATIO 1.2 (1.0-2.2); BILIRUBIN,TOTAL 0.5 mg/dL (0.2-1.0); CALCIUM 8.9 mg/dL (8.5-10.3); CREATININE 1.1 mg/dL (0.6-1.3); POTASSIUM 4.5 mmol/L (3.5-4.5); TOTAL PROTEIN 6.7 g/dL (6.4-8.9)
[2023-04-17 19:26] LABS: THYROID STIMULATING HORMONE 2.29 uIU/mL (0.34-5.60)
[2023-04-18 09:05] LABS: ESTIMATED AVERAGE GLUCOSE 146 mg/dL (70-100); HEMOGLOBIN A1c% 6.7 % (4.27-6.07)
== END 2023-04-17 09:39 | disposition home or self-care (01) ==
LOC: LAB.N 09:38
PROVIDERS: ATTEND Family Medicine
DX: I10 Essential (primary) hypertension (principal); E11.9 Type 2 diabetes mellitus without complications; I74.2 Embolism and thrombosis of arteries of the upper extremities; K21.9 Gastro-esophageal reflux disease without esophagitis; I25.10 Atherosclerotic heart disease of native coronary artery without angina pectoris; E78.5 Hyperlipidemia, unspecified; E03.9 Hypothyroidism, unspecified
CPT/HCPCS: 36415; 80053; 83036; 84439; 84443; 84481; 85025

== ENCOUNTER 2023-05-07 08:55 | Outpatient (CLI) | payer MEDICARE, BC ==
[2023-05-07 12:50] LABS: CHOL/HDL RATIO 2.9 (<5.0); CHOLESTEROL 163 mg/dL; HDL CHOLESTEROL 56 mg/dL; LDL CHOLESTEROL,CALCULATED 67 mg/dL; LDL/HDL RATIO 1.2 (<3.6); TRIGLYCERIDES 200 mg/dL (48-352); VLDL CHOLESTEROL 40 mg/dL
== END 2023-05-07 08:56 | disposition home or self-care (01) ==
LOC: LAB.N 08:55
PROVIDERS: ATTEND Physician Assistant Medical
DX: E78.5 Hyperlipidemia, unspecified (principal)
CPT/HCPCS: 36415; 80061; 83721

== ENCOUNTER 2023-06-02 08:00 | Outpatient (CLI) | payer MEDICARE, BC | END 2023-06-02 23:59 | disposition home or self-care (01) | LOC: LAB.N 08:00 | PROVIDERS: ATTEND Physician Assistant Medical | DX: R39.11 Hesitancy of micturition (principal) | CPT/HCPCS: 87086 ==

== ENCOUNTER 2023-08-23 09:28 | Outpatient (CLI) | payer MEDICARE, BC ==
[2023-08-23 12:24] LABS: ESTIMATED AVERAGE GLUCOSE 146 mg/dL (70-100); HEMOGLOBIN A1c% 6.7 % (4.27-6.07)
[2023-08-23 12:34] LABS: ALBUMIN 3.9 g/dL (3.2-5.5); ALBUMIN/GLOBULIN RATIO 1.2 (1.0-2.2); BILIRUBIN,TOTAL 0.8 mg/dL (0.2-1.0); CALCIUM 9.6 mg/dL (8.5-10.3); CREATININE 1.1 mg/dL (0.6-1.3); POTASSIUM 4.5 mmol/L (3.5-4.5); TOTAL PROTEIN 7.2 g/dL (6.4-8.9)
== END 2023-08-23 09:29 | disposition home or self-care (01) ==
LOC: LAB.N 09:28
PROVIDERS: ATTEND Physician Assistant Medical
DX: E11.9 Type 2 diabetes mellitus without complications (principal); R53.83 Other fatigue; R39.11 Hesitancy of micturition
CPT/HCPCS: 36415; 80053; 82306; 82607; 83036